=== PATIENT | female | born 1970 | race Caucasian/White ===

== ENCOUNTER → 2017-02-19 | Outpatient (CLI) | payer OTHER | LOC: FIMAGING 12:37 | PROVIDERS: ATTEND Family Medicine | DX: Z12.31 Encounter for screening mammogram for malignant neoplasm of breast (principal) | CPT/HCPCS: G0202 ==

== ENCOUNTER 2017-05-13 16:47 | Emergency (ER) | payer OTHER ==
[2017-05-13 17:05] VITALS: RESP 16; TEMP 98.2; O2SAT 99
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
[2017-05-13] MEDS ORDERED: AZITHROMYCIN 250 MG TAB PO ONE (18:21)
[2017-05-13 22:02] VITALS: BP 110/64; PULSE 64
== END 2017-05-13 21:00 | disposition home or self-care (01) ==
DX: T74.21XA Adult sexual abuse, confirmed, initial encounter (principal); I10 Essential (primary) hypertension
CPT/HCPCS: J0696

== ENCOUNTER → 2017-09-16 | Outpatient (CLI) | payer OTHER ==
[~2017-09-16] MED LIST: GADOBUTROL 10 ML VIAL IVP ONE
== END ==
LOC: FIMAGING 14:43
PROVIDERS: ATTEND Family Medicine
DX: R51 Headache (principal); R20.2 Paresthesia of skin; H53.9 Unspecified visual disturbance; R93.0 Abnormal findings on diagnostic imaging of skull and head, not elsewhere classified
CPT/HCPCS: A9585

== ENCOUNTER → 2017-12-02 | Outpatient (CLI) | payer OTHER ==
[~2017-12-02] MED LIST changes: -GADOBUTROL 10 ML VIAL IVP ONE; +IOPAMIDOL (ISOVUE-300) 100 ML BTL ONE
== END ==
LOC: FIMAGING 14:45
PROVIDERS: ATTEND Family Medicine
DX: K57.30 Diverticulosis of large intestine without perforation or abscess without bleeding (principal); E53.8 Deficiency of other specified B group vitamins; R20.2 Paresthesia of skin
CPT/HCPCS: 82565-PO; Q9967

== ENCOUNTER → 2018-01-08 | Outpatient (CLI) | payer OTHER | LOC: FIMAGING 18:31 | DX: M50.81 Other cervical disc disorders, high cervical region (principal); M53.82 Other specified dorsopathies, cervical region; M48.07 Spinal stenosis, lumbosacral region; M47.16 Other spondylosis with myelopathy, lumbar region ==

== ENCOUNTER → 2018-04-08 | Outpatient (CLI) | payer OTHER | LOC: FIMAGING 15:54 | PROVIDERS: ATTEND Family Medicine | DX: Z12.31 Encounter for screening mammogram for malignant neoplasm of breast (principal) ==